=== PATIENT | male | born 1955 | race Caucasian/White ===

== ENCOUNTER 2016-11-11 12:26 | Emergency (ER) | payer OTHER, BC ==
[~2016-11-11] VITALS: Ht 175.3 cm; Wt 113.6 kg
[2016-11-11] MEDS ORDERED: TOPROL XL 25MG25 MG PO (14:13)
[2016-11-11] MEDS ORDERED: FLOMAX 0.40.4 MG/CAP PO (14:13)
[2016-11-11] MEDS ORDERED: LIPITOR 10MG10 MG PO (14:13)
[2016-11-11] MEDS ORDERED: PROZAC 20MG20 MG PO (14:14)
[2016-11-11] MEDS ORDERED: PROSCAR 5MG5 MG PO (14:14)
[2016-11-11 14:15] LABS: BASO # 0.1 (0.0-0.2); BASO % 0.4 % (0.0-2.0); EOS # 0.1 (0.0-0.7); EOS % 0.6 % (0-4.0); GRAN # 11.6 (1.4-6.5); GRAN % 81.8 % (42.2-75.2); HEMATOCRIT 42.7 % (42.0-52.0); HEMOGLOBIN 14.5 g/dl (13.5-18.0); LYMPH # 1.3 (1.2-3.4); LYMPH % 9.3 % (20.0-51.0); MEAN CELL VOLUME 84 fl (80.0-100.0); MEAN CORPUSCULAR HEMOGLOBIN 29 pg (27.0-31.0); MEAN CORPUSCULAR HGB CONC 34 g/dl (33.0-37.0); MEAN PLATELET VOLUME 9.1 fl (7.4-10.4); MONO % 7.3 % (1.7-9.3); PLATELET COUNT 266 K/mm3 (130-400); RED BLOOD COUNT 5.06 M/mm3 (4.20-5.60); REDCELL DISTRIBUTION WIDTH-CV 13.1 % (11.5-14.5); WHITE BLOOD COUNT 14.1 K/mm3 (4.8-10.8)
[2016-11-11 14:34] LABS: ADJUSTED CALCIUM 9.3 mg/dL (8.4-10.2); ALBUMIN 4.1 gm/dL (3.5-5.0); BILIRUBIN,TOTAL 0.8 mg/dL (0.0-1.0); CALCIUM 9.4 mg/dL (8.4-10.2); CREATININE, serum 0.87 mg/dL (0.66-1.25); POTASSIUM 4.1 mmol/L (3.4-5.0); TOTAL PROTEIN 7.2 gm/dL (6.4-8.2)
[2016-11-11 15:54] VITALS: BP 137/86; PULSE 70
== END 2016-11-11 16:05 | disposition short-term general hospital (02) ==
LOC: COL.ER 12:26
PROVIDERS: Physician Assistant
DX: S32.018A Other fracture of first lumbar vertebra, initial encounter for closed fracture (principal); V48.5XXA Car driver injured in noncollision transport accident in traffic accident, initial encounter; Y92.410 Unspecified street and highway as the place of occurrence of the external cause; I10 Essential (primary) hypertension
CPT/HCPCS: J1170; J2060; Q9967

== ENCOUNTER 2018-02-05 11:28 | Emergency (ER) | payer OTHER, BC ==
[~2018-02-05] VITALS: Ht 182.9 cm; Wt 113.6 kg
[~2018-02-05 11:28] MED LIST: FLOMAX 0.40.4 MG/CAP PO; LIPITOR 10MG10 MG PO; PROSCAR 5MG5 MG PO; PROZAC 20MG20 MG PO; TOPROL XL 25MG25 MG PO
[2018-02-05 11:38] VITALS: TEMP 98.2
[2018-02-05 12:38] VITALS: BP 154/96; PULSE 64
== END 2018-02-05 12:39 | disposition home or self-care (01) ==
LOC: COL.ER 11:28
DX: S01.01XA Laceration without foreign body of scalp, initial encounter (principal); N40.0 Benign prostatic hyperplasia without lower urinary tract symptoms; E78.5 Hyperlipidemia, unspecified; I10 Essential (primary) hypertension; W22.8XXA Striking against or struck by other objects, initial encounter; Y92.89 Other specified places as the place of occurrence of the external cause; Y99.0 Civilian activity done for income or pay

== ENCOUNTER 2018-02-12 10:53 | Emergency (ER) | payer OTHER, BC ==
[2018-02-12 11:09] VITALS: BP 155/93; PULSE 60; TEMP 98.1
== END 2018-02-12 11:10 | disposition home or self-care (01) ==
LOC: COL.ER 10:53
DX: S01.01XD Laceration without foreign body of scalp, subsequent encounter (principal); X58.XXXD Exposure to other specified factors, subsequent encounter